=== PATIENT | female | born 1965 | race Caucasian/White ===

== ENCOUNTER 2020-05-18 14:17 | Emergency (ER) | payer OTHER ==
[2020-05-18] MEDS ORDERED: Bacitracin Oint 1 GM U/D Packet TOP ONE (14:48)
--- NOTE | 2020-05-18 14:49 | EDM.PDOC ---
ED HPI GENERAL MEDICAL PROBLEM - General Chief Complaint: Laceration Stated Complaint: CUT ON RT PINKY FINGER Time Seen by Provider: 05/18/20 14:49 Source of Information: Reports: Patient, RN Notes Reviewed History Limitations: Reports: No Limitations - History of Present Illness INITIAL COMMENTS - FREE TEXT/NARRATIVE: Tammy was washing dishes today [employer] and developed a laceration to her right 5th finger. Bleeding controlled. She denies any other injuries, fever, chills, cough or other concerns. Tetanus outdated - Related Data Allergies Allergy/AdvReac Type Severity Reaction Status Date / Time No Known Allergies Allergy Verified 05/18/20 14:47 Home Meds: Home Meds Citalopram Hydrobromide [Celexa] 05/18/20 [History] Losartan [Cozaar] 05/18/20 [History] ED ROS GENERAL - Review of Systems Review Of Systems: See Below (laceration to right 5th finger, bleeding controlled, ROM & sensation intact) Constitutional: Reports: No Symptoms HEENT: Reports: No Symptoms Respiratory: Reports: No Symptoms Cardiovascular: Reports: No Symptoms Endocrine: Reports: No Symptoms GI/Abdominal: Reports: No Symptoms : Reports: No Symptoms Musculoskeletal: Reports: Other Skin: Reports: Other (linear laceration 1 cm) Neurological: Reports: No Symptoms Psychiatric: Reports: No Symptoms Hematologic/Lymphatic: Reports: No Symptoms Immunologic: Reports: No Symptoms ED EXAM, SKIN/RASH Exam: See Below Exam Limited By: No Limitations General Appearance: Alert, WD/WN, No Apparent Distress Respiratory/Chest: No Respiratory Distress, Lungs Clear, Normal Breath Sounds, No Accessory Muscle Use, Chest Non-Tender. No: Crackles, Rales, Rhonchi, Wheezing Cardiovascular: Normal Peripheral Pulses, Regular Rate, Rhythm, No Edema, No Murmur, No Rub Extremities: Normal Inspection, Normal Range of Motion, Normal Capillary Refill, Other (left 5th finger tender ) Neurological: Alert, Oriented, Normal Cognition, Normal Gait, Normal Reflexes, No Motor/Sensory Deficits Psychiatric: Normal Affect, Normal Mood Skin: Warm, Dry, Other (laceration right 5th lateral aspect finger) Characteristics: Linear Associated features: Tenderness Lymphatic: No Adenopathy ED SKIN PROCEDURES - Laceration/Wound Repair Left Lateral Digit - 5th (Baby) Appearance: Subcutaneous Distal NVT: Neuro & Vascular Intact, No Tendon Injury Anesthetic Type: Local Local Anesthesia - Lidocaine (Xylocaine): 1% Plain Local Anesthetic Volume: 1cc Skin Prep: Chlorhexidine (Hibiciens), Saline Saline Irrigation (cc's): 10 Exploration/Debridement/Repair: In a Bloodless Field, No Foreign Material Found Closed with: Sutures Lac/Wound length In cm: 1 Suture Size: 4-0 # of Sutures: 4 Suture Type: Nylon Sterile Dressing Applied: Nurse Tetanus Status Addressed: Yes Complications: No Progress/Comments: Patient tolerated well. ROM and sensation intact. Course - Vital Signs Last Recorded V/S: Last Vital Signs Temp 36.6 C 05/18/20 14:51 Pulse 63 05/18/20 14:51 Resp 17 05/18/20 14:51 BP 203/106 H 05/18/20 14:51 Pulse Ox 96 05/18/20 14:51 Recheck blood pressure: 168/91 - Orders/Labs/Meds Meds: Medications Discontinued Medications Generic Name Dose Route Start Last Admin Trade Name Freq PRN Reason Stop Dose Admin Bacitracin 1 dose 05/18/20 14:48 05/18/20 14:59 Bacitracin Oint 1 Gm TOP 05/18/20 14:49 1 dose ONETIME ONE Administration Diphtheria/Tetanus/Acell Pertussis 0.5 ml 05/18/20 15:16 05/18/20 15:26 Adacel IM 05/18/20 15:17 0.5 ml .ONCE ONE Administration Lidocaine HCl 5 ml 05/18/20 14:48 05/18/20 14:59 Xylocaine-Mpf 1% INJECT 05/18/20 14:49 5 ml ONETIME ONE Administration Departure - Departure Time of Disposition: 15:16 Disposition: Home, Self-Care 01 Condition: Good Clinical Impression: Laceration of left little finger - Discharge Information *PRESCRIPTION DRUG MONITORING PROGRAM REVIEWED*: Not Applicable *COPY OF PRESCRIPTION DRUG MONITORING REPORT IN PATIENT WILLAM: Not Applicable Instructions: Laceration Care, Adult, [id number] Referrals: PCP,None [Primary Care Provider] - Forms: ED Department Discharge Additional Instructions: Keep laceration clean and dry. Do not submerge hand in water for long periods of time. Bacitracin to the laceration twice per day until healed. Return in 7 days for suture removal or follow up with primary provider for removal. Tetanus was updated today. Return for any worsening, issues or signs of infection. Sepsis Event Note (ED) - Focused Exam Vital Signs: Vital Signs Temp Pulse Resp BP Pulse Ox 05/18/20 14:51 36.6 C 63 17 203/106 H 96 05/18/20 14:44 36.6 C 63 17 203/106 H 96 - Assessment/Plan Assessment:: Laceration of left little finger Plan: Keep laceration clean and dry. Do not submerge hand in water for long periods of time. Bacitracin to the laceration twice per day until healed. Return in 7 days for suture removal or follow up with primary provider for removal. Tetanus was updated today. Return for any worsening, issues or signs of infection.
[2020-05-18] MEDS ORDERED: Diphtheria,Pertussis(Acell),Tetanus Vaccine 0.5 ML SDV IM ONE (15:16)
== END 2020-05-18 15:39 | disposition home or self-care (01) ==
LOC: JP.ED 14:17
DX: S61.216A Laceration without foreign body of right little finger without damage to nail, initial encounter (principal); Z23 Encounter for immunization; W26.8XXA Contact with other sharp object(s), not elsewhere classified, initial encounter
CPT/HCPCS: 12001; 90471; 90715; 99282; J2001